=== PATIENT | female | born 1980 | race Caucasian/White ===

== ENCOUNTER 2023-11-02 10:38 | Emergency (ER) | payer OTHER ==
[2023-11-02] MEDS ORDERED: ONDANSETRON 4 MG/2 ML VIAL ONE (11:25)
[2023-11-02] MEDS ORDERED: NA CHLORIDE 0.9% 1,000 ML ONE ×2 (11:25→14:09)
[2023-11-02 12:03] LABS: Absolute Basophils 0.1 K/uL (0-0.5); Absolute Eosinophils 0.3 K/uL (0-0.5); Absolute Lymphocytes (CBC) 2.2 K/uL (0.7-4.9); Absolute Monocytes 1.1 K/uL (0.1-1.3); Absolute Neutrophil 11.7 K/uL (1.8-8.0); Basophils % 0.4 % (0-1.3); Eosinophils % 1.7 % (0-4.4); Hematocrit 38.9 % (36.0-45.0); Hemoglobin 12.6 g/dL (12.0-15.0); Lymphocytes % 14.1 % (15.3-44.8); MCH 29.4 pg (27.0-35.0); MCHC 32.4 g/dL (32.0-36.0); MCV 90.7 fL (80-100); MPV 8.6 fL (7.6-11.3); Monocytes % 7.2 % (3.3-12.3); Neutrophils % 76.6 % (41.7-73.7); Platelets 285 thou/uL (152-406); RBC Red Blood Cell Count 4.29 M/uL (3.86-4.86); Red Cell Distribution Width 13.8 % (12.1-15.2)
[2023-11-02 12:22] LABS: Albumin 3.6 g/dL (3.4-5.0); Anion Gap 9.5 mEq/L (5.0-15.0); Bilirubin Total 0.5 mg/dL (0.2-1.0); Globulin 3.6 g/dL (2.3-3.5); Potassium 3.5 mEq/L (3.5-5.1); Protein, Total 7.2 g/dL (6.4-8.2)
[2023-11-02 13:13] LABS: Specific Gravity 1.016 (1.005-1.030); Urine Bilirubin NEGATIVE (Negative); Urine Blood Negative (Negative); Urine Clarity Clear (Clear); Urine Color Light-Yellow (Yellow); Urine Glucose NEGATIVE (Negative); Urine Ketones TRACE (Negative); Urine Microscopic Reflex YN NO UMIC; Urine Nitrite NEGATIVE (Negative); Urine Protein NEGATIVE (Negative); Urine Urobilinogen Normal (Normal)
[2023-11-02 13:14] LABS: Specific Gravity 1.016 (1.005-1.030)
--- NOTE | 2023-11-02 13:57 | RAD REPORT ---
EXAM DESCRIPTION: CT - Abdomen Pelvis W Contrast - 11/02/2023 1:36 pm CLINICAL HISTORY: Abdominal pain COMPARISON: September 2023 pelvic ultrasound TECHNIQUE: Computed axial tomography of the abdomen pelvis was obtained. 100 cc Isovue-300 was admin istered intravenously. Oral contrast was not requested which limits evaluation of bowel and appendix All CT scans are performed using dose optimization technique as appropriate and may include automated exposure control or mA/KV adjustment according to patient size. FINDINGS: The liver, spleen, pancreas, adrenal and kidneys appear unremarkable. There is no evidence of diverticulitis. No colitis. No obstruction No adnexal mass Normal appendix Small umbilical hernia IMPRESSION: No acute abnormality is displayed.
[2023-11-02] MEDS ORDERED: KETOROLAC 30 MG/ML INJ ONE (14:08)
[2023-11-02] MEDS ORDERED: CEFTRIAXONE 1000 MG/VIAL ONE (14:08)
[2023-11-02] MEDS ORDERED: METRONIDAZOLE 500mg IVPB 500 MG/100 ML BAG IV ONE (14:09)
[2023-11-02] MEDS ORDERED: DICYCLOMINE HCL 20 MG/2 ML AMP IM ONE (14:09)
--- NOTE | 2023-11-02 14:49 | ER ---
Nurse's Notes [facility] Name: Elizabeth Gregory Age: 43 yrs Sex: Female : 1980 Arrival Date: 11/02/2023 Time: 10:38 Bed 16 Private MD: Diagnosis: gastroenteritis with rectal bleeding Presentation: 11/01 10:48 Chief complaint: Patient states: Nausea and vomiting since last night. States she had nj1 an episode of diarrhea and has been having rectal bleeding ever since. 10:48 Coronavirus screen: Vaccine status: Patient reports receiving the 2nd dose of the covid nj1 vaccine. Ebola Screen: Patient denies travel to an Ebola-affected area in the 21 days before illness onset. Initial Sepsis Screen: Does the patient meet any 2 criteria? No. Patient's initial sepsis screen is negative. Does the patient have a suspected source of infection? No. Patient's initial sepsis screen is negative. Risk Assessment: Do you want to hurt yourself or someone else? Patient reports no desire to harm self or others. Onset of symptoms was November 01, 2023. 10:48 Method Of Arrival: Ambulatory [facility] 10:48 Acuity: RICHARD 3 [facility] Triage Assessment: 15:02 GI: Reports nausea, vomiting. [facility] [place] RESEARCH ASST: 15:01 LMP N/A - control method, Not [facility] [place] Historical: - Allergies: 10:57 No Known Allergies; nj1 - PMHx: 10:57 Lupus erythematosus; Hypercholesterolemia; nj1 - Immunization history:: Client reports receiving the 2nd dose of the Covid vaccine. - Infectious Disease History:: Denies. CDIFF, C. Auris, ESBL, MRSA (w/in 1 year), VRE (w/in 1 year), TB, . - Social history:: Smoking status: Patient denies any tobacco usage or history of. Screenin:50 [facility] ED Fall Risk Assessment (Adult) History of falling in the last 3 months, cp4 including since admission No falls in past 3 months (0 pts) Confusion or Disorientation No (0 pts) Intoxicated or Sedated No (0 pts) Impaired Gait No (0 pts) Mobility Assist Device Used No (0 pt) Altered Elimination No (0 pt) Score/Fall Risk Level 0 - 2 = Low Risk Oriented to surroundings, Maintained a safe environment, Assessed \T\ reinforced patient's understanding of fall precautions, Hourly rounding (assess needs \T\ fall precautionary measures) done. Abuse screen: Denies threats or abuse. Nutritional screening: No deficits noted. Tuberculosis screening: No symptoms or risk factors identified. Assessment: 11:50 General: Appears uncomfortable, Behavior is calm, cooperative, appropriate for age. cp4 Pain: Denies pain. GI: Abdomen is round non-distended, Bowel sounds present X 4 quads. Abd is soft and non tender X 4 quads. Vital Signs: 10:48 BP 135 / 90; Pulse 69; Resp 16; Temp 98(O); Pulse Ox 97% on R/A; Weight 78.93 kg; nj1 Height 5 ft. 3 in. ; 11:59 BP 117 / 81; Pulse 72; Resp 18; Pulse Ox 99% ; cp4 13:00 BP 117 / 81; Pulse 71; Resp 16; Pulse Ox 96% on R/A; me1 14:15 BP 100 / 71; Pulse 76; Resp 16; Pulse Ox 96% on R/A; me1 14:45 BP 104 / 60; Pulse 88; Resp 16; Pulse Ox 95% on R/A; me1 10:48 Body Mass Index 30.82 (78.93 kg, 160.02 cm) nj1 ED Course: 10:40 Patient arrived in ED. ra3 10:43 Dinora Cox PA-C is PHCP. sb4 10:43 Hammad Grossman MD is Attending Physician. sb4 10:50 Camryn Lindsay is Primary Nurse. cp4 10:57 Triage completed. nj1 10:58 Arm band placed on left wrist. nj1 11:23 CBC with Diff Sent. cp4 11:23 CMP Sent. cp4 11:23 Lipase Sent. cp4 11:50 Placed in gown. Bed in low position. Call light in reach. Side rails up X 1. Provided cp4 Education on: vomiting . 11:50 No provider procedures requiring assistance completed. Initial lab(s) drawn, by me, cp4 sent to lab. Inserted saline lock: 20 gauge in left antecubital area, using aseptic technique. Blood collected. 12:24 Radiology exam delayed due to test not completed at this time. 9 12:54 Urinalysis w/ reflexes Sent. me1 12:54 Test, Urine Sent. me1 12:54 Urine collected: clean catch specimen, cloudy. me1 13:38 CT Abd/Pelvis - IV Contrast Only In Process Unspecified. EDMS 14:48 Jamar Rodrigues MD is Referral Physician. sb4 15:01 IV discontinued, intact, bleeding controlled, No redness/swelling at site. Pressure me1 dressing applied. Administered Medications: 11:31 Drug: NS 0.9% IV 1000 ml IV at 1 bolus Per protocol; 1000 mL bolus Route: IV; Rate: 1 cp4 bolus; Site: left antecubital; 12:54 Follow up: IV Status: Completed infusion; IV Intake: 1000ml me1 11:31 Drug: Ondansetron IVP 4 mg IVP once; over 2 minutes Route: IVP; Site: left antecubital; cp4 12:54 Follow up: Response: No adverse reaction; Nausea is decreased me1 14:22 Drug: metroNIDAZOLE IVPB 500 mg 100 ml IVPB at 200 ml/hr once over 30 mins Volume: 100 me1 ml; Route: IVPB; Rate: 200 ml/hr; Infused Over: 30 mins; Site: left antecubital; 15:00 Follow up: Response: No adverse reaction; IV Status: Completed infusion me1 14:22 Drug: Ketorolac IVP 15 mg IVP once Route: IVP; Site: left antecubital; me1 15:00 Follow up: Response: No adverse reaction; Pain is decreased me1 14:22 Drug: NS 0.9% IV 1000 ml IV at 1 bolus Per protocol; 1000 mL bolus Route: IV; Rate: 1 me1 bolus; Site: left antecubital; 15:00 Follow up: Response: No adverse reaction; IV Status: Completed infusion me1 14:22 Drug: Dicyclomine IM 20 mg IM once Route: IM; Site: right deltoid; me1 15:00 Follow up: Response: No adverse reaction; Pain is decreased me1 14:23 Drug: Rocephin IV 1 grams IV at calculated rate once; Given slow IV push per pharmacy me1 instructions Route: IV; Rate: calculated rate; Site: left antecubital; 15:01 Follow up: Response: No adverse reaction; IV Status: Completed infusion me1 Medication: 11:50 VIS not applicable for this client. cp4 Intake: 12:54 IV: 1000ml; Total: 1000ml. or1 Outcome: 14:48 Discharge ordered by . sb4 15:01 Discharged to home ambulatory, with significant other, or1 15:01 Condition: stable 15:01 Discharge instructions given to patient, significant other, Instructed on discharge instructions, follow up and referral plans. medication usage, Demonstrated understanding of instructions, follow-up care, medications, Prescriptions given X 4, 15:02 Patient left the ED. or1 Signatures: Dispatcher [employer] Dinora Meza, ALVARO PAStephon sb4 Nay Botello RN RN nj1 Domi Rasheed RN RN me1 Camryn Lindsay 4 Melvi Morin 9 Anna Marie Vela 3
--- NOTE | 2023-11-02 14:49 | EDPHYS ---
Physician Documentation [facility] Name: Elizabeth Gregory Age: 43 yrs Sex: Female : 1980 Arrival Date: 11/02/2023 Time: 10:38 Bed 16 Private MD: YOUNG Physician Hammad Grossman HPI: 11/01 11:23 This 43 yrs old Female presents to ER via Ambulatory with complaints of Vomiting, sb4 Rectal Bleeding. 11:23 Patient states that she went to a barbecue yesterday and last night she had a sudden sb4 onset of vomiting. Shortly after she started vomiting, she started experiencing diarrhea, then profuse rectal bleeding. States that she has had bright red blood per rectum ever since and has continued experiencing vomiting. States that she does get periods of intermittent lower abdominal cramping. Denies any history of colitis or diverticulitis. Does report a history of hemorrhoids that occasionally bleed, but never this extensive. RN ONCOLOGY RESEARCH: 15:01 LMP N/A - control method, Not me1 Historical: - Allergies: 10:57 No Known Allergies; nj1 - PMHx: 10:57 Lupus erythematosus; Hypercholesterolemia; nj1 - Immunization history:: Client reports receiving the 2nd dose of the Covid vaccine. - Infectious Disease History:: Denies. CDIFF, C. Auris, ESBL, MRSA (w/in 1 year), VRE (w/in 1 year), TB, . - Social history:: Smoking status: Patient denies any tobacco usage or history of. ROS: 11:23 Constitutional: Negative for fever, chills, and weight loss, sb4 11:23 Abdomen/GI: Positive for abdominal pain, nausea, vomiting, and diarrhea, rectal bleeding, 11:23 All other systems are negative, Exam: 11:23 Constitutional: This is a well developed, well nourished patient who is awake, alert, sb4 and in no acute distress. Head/Face: Normocephalic, atraumatic. Eyes: Extra-ocular motions intact. Periorbital areas with no swelling, redness, or edema. ENT: Mucous membranes moist. Cardiovascular: Regular rate and rhythm with a normal S1 and S2. Respiratory: Lungs have equal breath sounds bilaterally, clear to auscultation and percussion. No rales, rhonchi or wheezes noted. No increased work of breathing, no retractions or nasal flaring. Abdomen/GI: Soft, non-tender, no distension. Skin: Warm, dry with normal turgor. Normal color with no rashes, no lesions, and no evidence of cellulitis. MS/ Extremity: Pulses equal, no cyanosis. Neurovascular intact. Full, normal range of motion. Neuro: Awake and alert, GCS 15, oriented to person, place, time, and situation. Motor strength 5/5 in all extremities. Sensory grossly intact. 12:06 Special observations: the patient tolerates PO fluids, tolerates food, sb4 14:33 Abdomen/GI: Rectal exam: rectal tone normal, Stool: normal, hemorrhoid(s), internal, sb4 swelling, is not appreciated, tenderness, is not appreciated, Vital Signs: 10:48 BP 135 / 90; Pulse 69; Resp 16; Temp 98(O); Pulse Ox 97% on R/A; Weight 78.93 kg; nj1 Height 5 ft. 3 in. ; 11:59 BP 117 / 81; Pulse 72; Resp 18; Pulse Ox 99% ; cp4 13:00 BP 117 / 81; Pulse 71; Resp 16; Pulse Ox 96% on R/A; me1 14:15 BP 100 / 71; Pulse 76; Resp 16; Pulse Ox 96% on R/A; me1 14:45 BP 104 / 60; Pulse 88; Resp 16; Pulse Ox 95% on R/A; me1 10:48 Body Mass Index 30.82 (78.93 kg, 160.02 cm) nj1 MDM: 10:46 Patient medically screened. sb4 14:48 Data reviewed: vital signs, nurses notes, lab test result(s), radiologic studies, and sb4 as a result, I will discharge patient. Counseling: I had a detailed discussion with the patient and/or guardian regarding the historical points, exam findings, and any diagnostic results supporting the discharge/admit diagnosis, lab results, radiology results, the need for outpatient follow up, a public health epidemiologist, to return to the emergency department if symptoms worsen or persist or if there are any questions or concerns that arise at home. 11/01 10:59 Order name: CBC with Diff; Complete Time: 12:09 sb4 11/01 10:59 Order name: CMP; Complete Time: 12:28 sb4 11/01 10:59 Order name: Lipase; Complete Time: 12:28 sb4 11/01 10:59 Order name: Test, Urine; Complete Time: 13:14 sb4 11/01 10:59 Order name: Urinalysis w/ reflexes; Complete Time: 13:14 sb4 11/01 10:59 Order name: CT Abd/Pelvis - IV Contrast Only; Complete Time: 13:58 sb4 11/01 10:59 Order name: IV Saline Lock; Complete Time: 11:23 sb4 11/01 10:59 Order name: Labs collected and sent; Complete Time: 11: sb4 11/01 13:58 Order name: PO challenge; Complete Time: 14:10 sb4 Administered Medications: 11:31 Drug: NS 0.9% IV 1000 ml IV at 1 bolus Per protocol; 1000 mL bolus Route: IV; Rate: 1 cp4 bolus; Site: left antecubital; 12:54 Follow up: IV Status: Completed infusion; IV Intake: 1000ml me1 11:31 Drug: Ondansetron IVP 4 mg IVP once; over 2 minutes Route: IVP; Site: left antecubital; cp4 12:54 Follow up: Response: No adverse reaction; Nausea is decreased me1 14:22 Drug: metroNIDAZOLE IVPB 500 mg 100 ml IVPB at 200 ml/hr once over 30 mins Volume: 100 me1 ml; Route: IVPB; Rate: 200 ml/hr; Infused Over: 30 mins; Site: left antecubital; 15:00 Follow up: Response: No adverse reaction; IV Status: Completed infusion me1 14:22 Drug: Ketorolac IVP 15 mg IVP once Route: IVP; Site: left antecubital; me1 15:00 Follow up: Response: No adverse reaction; Pain is decreased me1 14:22 Drug: NS 0.9% IV 1000 ml IV at 1 bolus Per protocol; 1000 mL bolus Route: IV; Rate: 1 me1 bolus; Site: left antecubital; 15:00 Follow up: Response: No adverse reaction; IV Status: Completed infusion me1 14:22 Drug: Dicyclomine IM 20 mg IM once Route: IM; Site: right deltoid; me1 15:00 Follow up: Response: No adverse reaction; Pain is decreased me1 14:23 Drug: Rocephin IV 1 grams IV at calculated rate once; Given slow IV push per pharmacy me1 instructions Route: IV; Rate: calculated rate; Site: left antecubital; 15:01 Follow up: Response: No adverse reaction; IV Status: Completed infusion me1 Disposition Summary: 11/02/23 14:48 Discharge Ordered Notes: Location: Home sb4 Problem: new sb4 Symptoms: have improved sb4 Condition: Stable sb4 Diagnosis - gastroenteritis with rectal bleeding sb4 Followup: sb4 - With: Jamar Rodrigues MD - When: 1 week - Reason: Further diagnostic work-up, Recheck today's complaints, Re-evaluation by your physician Discharge Instructions: - Discharge Summary Sheet sb4 - Rectal Bleeding, [id number] sb4 Forms: - Antibiotic Education sb4 - Patient Portal Instructions sb4 - Leadership Thank You Letter sb4 Prescriptions: - Flagyl 500 mg Oral Tablet - take 1 tablet ORAL route every 12 hours for 7 days; 14 tablet; Refills: 0, sb4 Product Selection Permitted - Zofran 4 mg Oral Tablet - take 1 tablet ORAL route every 12 hours As needed; 20 tablet; Refills: 0, sb4 Product Selection Permitted - Cipro 500 mg Oral Tablet - take 1 tablet ORAL route every 12 hours for 7 days; 14 tablet; Refills: 0, sb4 Product Selection Permitted - dicyclomine 20 mg Oral tablet - take 1 tablet ORAL route 3 times per day As needed; 20 tablet; Refills: 0, sb4 Product Selection Permitted Signatures: Dispatcher [employer] Dinora Meza PA-C PA-C sb4 Nay Botello RN RN nj1 Domi Rasheed RN RN me1 Camryn Lindsay cp4
[2023-11-02 15:33] VITALS: BP 104/60; TEMP 98; O2SAT 95
== END 2023-11-02 15:02 | disposition home or self-care (01) ==
LOC: ER 10:38
DX: K52.9 Noninfective gastroenteritis and colitis, unspecified (principal); R11.2 Nausea with vomiting, unspecified
CPT/HCPCS: 96365; 96361; 85025; 36415; 81025; 81003; 83690; 80053; 74177; 96375; 96372; 99284; Q9967; J0500; J2405; J7030 ×2; J0696